=== PATIENT | male | born 2000 | race Caucasian/White ===

== ENCOUNTER 2018-11-18 20:30 | Emergency (ER) | payer OTHER ==
[2018-11-18 20:52] VITALS: BP 126/51
[2018-11-18] MEDS ORDERED: Azithromycin TAB* 250 MG PO ONE (21:20)
--- NOTE | 2018-11-18 21:21 | ED ---
Respiratory - HPI Summary HPI Summary: 18 yo WM p/w worsening cough with congestion x 2 weeks that started withe URI that progressively became worse, now with yellow green sputum, denies f/c - History of Current Complaint Chief Complaint: UCRespiratory Stated Complaint: CONGESITON, COUGH Time Seen by Provider: 11/18/18 20:47 Hx Obtained From: Patient Onset/Duration: Sudden Onset Initial Severity: Moderate Current Severity: Moderate Pain Intensity: 0 Character: Cough (Productive) Sputum Amount: Moderate Sputum Color: Yellow Aggravating Factor(s): URI Alleviating Factor(s): Nothing - Allergy/Home Medications Allergies/Adverse Reactions: Allergies Allergy/AdvReac Type Severity Reaction Status Date / Time No Known Allergies Allergy Verified 11/18/18 20:43 Home Medications: Home Medications Acetaminophen TAB* [Tylenol TAB*] 650 mg PO Q4H PRN 11/18/18 [History Confirmed 11/18/18] Benzonatate CAP* [Tessalon 100 MG CAP*] 100 mg PO TID PRN 11/18/18 [History Confirmed 11/18/18] Pseudoephedrine TAB* [Sudafed TAB*] 30 mg PO Q6H PRN 11/18/18 [History Confirmed 11/18/18] guaiFENesin ER TAB [Mucinex*] 600 mg PO BID PRN 11/18/18 [History Confirmed 07/02] PMH/Surg Hx/FS Hx/Imm Hx Previously Healthy: Yes Infectious Disease History: No Infectious Disease History: Denies: Traveled Outside the [place] in Last 30 Days - Family History Known Family History: Positive: Non-Contributory - Social History Alcohol Use: Occasionally Substance Use Type: Reports: None Smoking Status (MU): Never Smoked Tobacco Review of Systems Constitutional: Negative Eyes: Negative ENT: Negative Cardiovascular: Negative Positive: Cough - with pleuritic CP Gastrointestinal: Negative Genitourinary: Negative Musculoskeletal: Negative Skin: Negative Neurological: Negative Psychological: Normal All Other Systems Reviewed And Are Negative: Yes Physical Exam - Summary Physical Exam Summary: Appearance: Positive: No Pain Distress Skin: Positive: Warm Head/Face: Positive: Normal Head/Face Inspection Eyes: Positive: Normal ENT: Positive: Normal ENT inspection Neck: Positive: Supple Respiratory/Lung Sounds: diffuse rhonchi with wet cough Cardiovascular: Positive: Normal, RRR, S1, S2 Abdomen : soft, NT/ND Musculoskeletal: Positive: Normal, Strength/ROM Intact Neurological: Positive: CN 2-12 grossly intact Triage Information Reviewed: Yes Vital Signs On Initial Exam: Initial Vitals Temp Pulse Resp BP Pulse Ox 37.6 C 88 15 126/51 100 11/18/18 20:47 11/18/18 20:47 11/18/18 20:47 11/18/18 20:47 11/18/18 20:47 Diagnostics - Vital Signs Vital Signs Temp Pulse Resp BP Pulse Ox 11/18/18 20:47 37.6 C 88 15 126/51 100 - Laboratory Lab Statement: Any lab studies that have been ordered have been reviewed, and results considered in the medical decision making process. Disposition - Diagnoses Provider Diagnoses: Bronchitis Discharge ED - Sign-Out/Discharge Documenting (check all that apply): Patient Departure All imaging exams completed and their final reports reviewed: Yes - Discharge Plan Condition: Stable Disposition: HOME Prescriptions: Azithromyxin TANK (NF) [Z-Tank (Zithromax) 250 mg tabs #6] 2 tab PO .TODAY, THEN 1 DAILY #6 tab Patient Education Materials: Acute Bronchitis (ED) - Billing Disposition and Condition Condition: STABLE Disposition: Home
== END 2018-11-18 21:27 | disposition home or self-care (01) ==
LOC: UCCORT 20:30
DX: J40 Bronchitis, not specified as acute or chronic (principal)
CPT/HCPCS: 99202; A9270-GY; G0463

== ENCOUNTER 2018-11-20 12:42 | Emergency (ER) | payer OTHER ==
[2018-11-20 13:24] VITALS: BP 113/96
[2018-11-20 14:04] LABS: Influenza A Molecular NEGATIVE (Negative); Influenza B Molecular NEGATIVE (Negative)
--- NOTE | 2018-11-20 14:19 | UC ---
Respiratory Complaint HPI - HPI Summary HPI Summary: 18-year-old male presents to urgent care with complaints of persistent fever and cough. He was seen at this facility on 11/18/2018 and diagnosed with acute bronchitis. He was started on a course of azithromycin and provided Tessalon Perles as needed for cough. Patient states he took his third dose of antibiotic today but has continued to have daily fevers. Max temperature of 100.5 F. States cough has not improved. Feels mildly short of breath and fatigued. Symptoms are associated with some mild nasal congestion. Denies ear pain, sore throat, chest pain, abdominal pain, nausea, vomiting, or diarrhea. - History of Current Complaint Chief Complaint: UCGeneralIllness Stated Complaint: FEVER,CONGESTION,COUGH Time Seen by Provider: 11/20/18 13:48 Hx Obtained From: Patient Pain Intensity: 3 - Allergies/Home Medications Allergies/Adverse Reactions: Allergies Allergy/AdvReac Type Severity Reaction Status Date / Time No Known Allergies Allergy Verified 11/20/18 13:24 PMH/Surg Hx/FS Hx/Imm Hx Previously Healthy: Yes - Denies significant PMH - Surgical History Surgical History: None - Family History Known Family History: Positive: Non-Contributory - Social History Occupation: Student Lives: Dormitory/Roommates Alcohol Use: Occasionally Substance Use Type: None Smoking Status (MU): Never Smoked Tobacco Review of Systems All Other Systems Reviewed And Are Negative: Yes Constitutional: Positive: Fever, Chills, Fatigue Skin: Negative: Rash Eyes: Negative: Drainage, Eye Redness ENT: Positive: Nasal Discharge, Sinus Congestion. Negative: Sore Throat, Ear Ache, Sinus Pain/Tenderness Respiratory: Positive: Shortness Of Breath, Cough Cardiovascular: Positive: Chest Pain - Pleuritic. Negative: Palpitations Gastrointestinal: Negative: Abdominal Pain, Vomiting, Diarrhea, Nausea Genitourinary: Positive: Negative Musculoskeletal: Positive: Negative Neurological: Positive: Negative Is Patient Immunocompromised?: No Physical Exam - Summary Physical Exam Summary: GENERAL APPEARANCE: Well developed, well nourished, alert and cooperative, and appears to be in no acute distress. EYES: Conjunctiva clear. No drainage. EARS: External auditory canals and tympanic membranes clear, hearing grossly intact. NOSE: Mild nasal congestion. No nasal discharge. THROAT: Mild pharyngeal erythema with post-nasal drip. No tonsilar inflammation , swelling, exudate, or lesions. Uvula midline. NECK: Neck supple, non-tender without lymphadenopathy. CARDIAC: Normal S1 and S2. No S3, S4 or murmurs. Rhythm is regular. There is no peripheral edema, cyanosis or pallor. Extremities are warm and well perfused. Capillary refill is less than 2 seconds. Peripheral pulses intact. LUNGS: Fine crackles noted to the left lower lung field. No diminished breath sounds. Non-productive cough. ABDOMEN: Positive bowel sounds. Soft, nondistended, nontender. No guarding or rebound. No masses or hepatosplenomegally. MUSKULOSKELETAL: ROM intact to all extremities. No joint erythema or tenderness. Normal muscular development. Normal gait. SKIN: Skin normal color, texture and turgor with no lesions or eruptions. Triage Information Reviewed: Yes Vital Signs: Initial Vital Signs Temp 100.9 F 11/20/18 13:21 Pulse 100 11/20/18 13:21 Resp 20 11/20/18 13:21 BP 113/96 11/20/18 13:21 Pulse Ox 99 11/20/18 13:21 Vital Signs Reviewed: Yes Diagnostics - Radiology No standard instances Radiology Interpretation Completed By: Radiologist Summary of Radiographic Findings: Order Information: CHEST PA LAT 2 VWS. INDICATION: Persistent fever, worsening cough. COMPARISON: There are no prior studies available for comparison. TECHNIQUE: Dual-energy PA and lateral views of the chest were obtained. FINDINGS: The heart is within normal limits in size. Mediastinal and hilar contours appear within normal limits. There is a small infiltrate in the left lower lobe suggestive of pneumonia. The right lung appears clear. No pleural effusion is seen. IMPRESSION: SMALL LEFT LOWER LOBE INFILTRATE SUGGESTIVE OF PNEUMONIA. Respiratory Course/Dx - Course Course Of Treatment: 18-year-old male presents to urgent care with complaints of persistent fever and cough. He was seen at this facility on 11/18/2018 and diagnosed with acute bronchitis. He was started on a course of azithromycin and provided Tessalon Perles as needed for cough. Patient states he took his third dose of antibiotic today but has continued to have daily fevers. Max temperature of 100.5 F. States cough has not improved. Feels mildly short of breath and fatigued. Symptoms are associated with some mild nasal congestion. Denies ear pain, sore throat, chest pain, abdominal pain, nausea, vomiting, or diarrhea. Patient was febrile with a temp of 100.9 F and was mildly tachycardic otherwise vital signs were stable. On exam he had mild nasal congestion, mild pharyngeal erythema with postnasal drip, fine crackles in the left lower lung field, a nonproductive cough, and otherwise unremarkable exam. Chest x-ray confirmed a left lower lung infiltrate suggestive of pneumonia. I discussed with the patient that the azithromycin would be an appropriate antibiotic for treating a community-acquired pneumonia although this could also be a viral pneumonia which the antibiotic will not treat. He is to continue the azithromycin as previously directed as well as symptomatic treatment. He is to follow up here or at the [facility] in 2 days for recheck of symptoms. Anticipatory guidance and warning symptoms are reviewed with the patient. Verbalizes understanding and agrees with plan of care. - Differential Dx/Diagnosis Differential Diagnosis/HQI/PQRI: Bronchitis, Lower Resp Infection, Other - URI Provider Diagnosis: Community acquired pneumonia Discharge ED - Sign-Out/Discharge Documenting (check all that apply): Patient Departure All imaging exams completed and their final reports reviewed: Yes - Discharge Plan Condition: Stable Disposition: HOME Patient Education Materials: Community Acquired Pneumonia (ED) Forms: *School Release Referrals: No Primary Care Phys,NOPCP [Primary Care Provider] - Additional Instructions: Your chest x-ray performed in the clinic today showed pneumonia in the left lower lung. You are on an appropriate antibiotic to treat a community acquired pneumonia. Be aware that the cough with pneumonia may persist for 2-3 weeks even if other symptoms have improved. You may also experience fatigue for several weeks during your recovery. Get plenty of rest. Drink plenty of fluids. Run a cool mist humidifer in your room at night. Take over the counter acetaminophen (Tylenol) or ibuprofen (Advil, Motrin) according to directions as needed for pain or fever. Continue to take Tessalon Perles 1 cap every 8 hours as needed for cough. Return here of follow up with at the [facility] in 2 days for a recheck of your symptoms. Seek immediate medical attention in the emergency room if you have fever greater than 100.5 F despite taking acetaminophen or ibuprofen, have chest pain , difficulty breathing, or have any worsening of symptoms. - Billing Disposition and Condition Condition: STABLE Disposition: Home
== END 2018-11-20 15:02 | disposition home or self-care (01) ==
LOC: UCCORT 12:42
DX: J18.9 Pneumonia, unspecified organism (principal)
CPT/HCPCS: 71046; 99211; G0463

== ENCOUNTER 2019-03-29 10:09 | Emergency (ER) | payer OTHER ==
[2019-03-29 10:31] VITALS: BP 124/72
--- NOTE | 2019-03-29 11:10 | UC ---
Throat Pain/Nasal Jones HPI - HPI Summary HPI Summary: 19-year-old college male who has had cough and cold symptoms for approximately 2 weeks. He states today when he coughed he had some flecks of blood in the sputum. He also complains of sinus congestion and pressure. He is a nonsmoker , did not get a flu shot in fall. He has a history of pneumonia 2 times in the past year. His mother is requesting a chest x-ray for him. - History of Current Complaint Chief Complaint: UCGeneralIllness Stated Complaint: COUGH,CONGESTION Time Seen by Provider: 03/29/19 11:09 Hx Obtained From: Patient Onset/Duration: Gradual Onset, Lasting Days Severity: Mild Pain Intensity: 0 Cough: Productive - Occasionally has a productive cough of some yellowish sputum with some red flecks in it this morning. Associated Signs & Symptoms: Positive: Sinus Discomfort, Nasal Discharge - Allergies/Home Medications Allergies/Adverse Reactions: Allergies Allergy/AdvReac Type Severity Reaction Status Date / Time No Known Allergies Allergy Verified 03/29/19 10:32 PMH/Surg Hx/FS Hx/Imm Hx Previously Healthy: Yes Respiratory History: Pneumonia - Patient has had pneumonia 2 times in the past year. - Surgical History Surgical History: None - Family History Known Family History: Positive: Non-Contributory - Social History Occupation: Student Lives: Dormitory/Roommates Alcohol Use: Weekly Substance Use Type: None Smoking Status (MU): Never Smoked Tobacco Review of Systems All Other Systems Reviewed And Are Negative: Yes Respiratory: Positive: Cough Is Patient Immunocompromised?: No Physical Exam Triage Information Reviewed: Yes Appearance: Well-Appearing, No Pain Distress, Well-Nourished Vital Signs: Initial Vital Signs Temp 98.9 F 03/29/19 10:26 Pulse 77 03/29/19 10:26 Resp 16 03/29/19 10:26 BP 124/72 03/29/19 10:26 Pulse Ox 99 03/29/19 10:26 Vital Signs Reviewed: Yes Eyes: Positive: Conjunctiva Clear ENT: Positive: Pharynx normal - Yellow purulent postnasal drainage., Nasal congestion, Nasal drainage, TMs normal, Sinus tenderness - Mild tenderness on palpation frontal sinuses bilaterally., Uvula midline Neck: Positive: Supple, Nontender, No Lymphadenopathy Respiratory: Positive: Lungs clear, Normal breath sounds, No respiratory distress, No accessory muscle use Cardiovascular: Positive: RRR, No Murmur, Pulses Normal, Brisk Capillary Refill Musculoskeletal Exam: Normal Neurological Exam: Normal Psychological Exam: Normal Skin Exam: Normal Throat Pain/Nasal Course/Dx - Course Course Of Treatment: The patient is comfortable here. I am going to treat him for sinus infection however he stated his mother is requesting that he get a chest x-ray as well. Chest x-ray:FINDINGS: The heart is within normal limits in size. Mediastinal and hilar contours appear within normal limits. The lungs are clear. No pleural effusion is seen. IMPRESSION: NO EVIDENCE FOR ACTIVE CARDIOPULMONARY DISEASE. - Differential Dx/Diagnosis Provider Diagnosis: Sinusitis Discharge ED - Sign-Out/Discharge Documenting (check all that apply): Patient Departure All imaging exams completed and their final reports reviewed: Yes - Discharge Plan Condition: Good Disposition: HOME Prescriptions: Amoxicillin PO (*) [Amoxicillin 875 MG (*)] 875 mg PO BID 10 Days #20 tab Patient Education Materials: Sinusitis (ED) Referrals: No Primary Care Phys,NOPCP [Primary Care Provider] - JOSE JEAN-BAPTISTE [, APPLICATION, OTHER] - Additional Instructions: Increase fluids, [id number] cold medicines as directed, follow-up at the [facility] if no improvement in 4-5 days. - Billing Disposition and Condition Condition: GOOD Disposition: Home
== END 2019-03-29 11:38 | disposition home or self-care (01) ==
LOC: UCCORT 10:09
DX: J32.9 Chronic sinusitis, unspecified (principal)
CPT/HCPCS: 71046; 99212; G0463